=== PATIENT | female | born 1995 | race Caucasian/White ===

== ENCOUNTER → 2021-11-03 | Outpatient (CLI) | payer OTHER ==
[~2021-11-03] MED LIST: CONTRAST GIVEN. MC PRN; IOHEXOL 300 MG/ML 50 ML VIAL. IJ ONE
--- NOTE | 2021-11-03 15:57 | RAD ---
EXAM: Hysterosalpingogram. HISTORY: 26-year-old female presents for evaluation of fallopian tube patency prior to assisted repro duction. TECHNIQUE: The risks of the procedure were discussed with the patient and written and verbal consent was obtained. The patient sign a waiver denying and acknowledging procedural risks. The pat ient was placed in a supine position on the fluoroscopy table and a speculum was advanced into the va patricia. The cervix was identified and cleansed with Betadine. A balloon tipped catheter was then advanc ed into the cervix. A manager pacu image of the pelvis is obtained. Multiple fluoroscopic images were then o btained during the injection of water-soluble contrast. The catheter balloon was then deflated and an additional image was obtained. The patient tolerated the procedure without complication. 10 fluorosc opic images were obtained for total fluoroscopy time of 1.7 minutes. COMPARISON: None. FINDINGS: The uterus is deviated towards the right adnexa, a normal variant. The configuration is unr emarkable. No lesion is seen involving the distal calf. There is contrast opacification to suggest co ntrast from both tubes into the peritoneal cavity. IMPRESSION: Normal endometrial cavity and patent bilateral fallopian tubes. Electronically signed by: Princess Toussaint MD (11/03/2021 3:54 PM) [id number]
== END | disposition home or self-care (01) ==
LOC: RAD 14:44
PROVIDERS: ATTEND Obstetrics & Gynecology Reproductive Endocrinology
DX: Z31.41 Encounter for fertility testing (principal)
CPT/HCPCS: 58340; 74740